=== PATIENT | female | born 1950 | race Caucasian/White ===

== ENCOUNTER 2020-11-06 12:09 | Emergency (ER) | payer OTHER ==
[~2020-11-06] VITALS: Ht 165.1 cm; Wt 86.2 kg
--- NOTE | ~2020-11-06 | EMS ---
[address] [address] EMS Patient Care Report Name: ALEXA PERALTA Room #: DEP LEYLA Chaney#: [id number] Admission: 11/06/20 Attend Phys: Discharge: 11/06/20 Date of : 50 Report #: [id number] THIS REPORT FOR: //name// Report Transmitted: 11/07/2020 06:59 EMS Care Summary [place], [place]/[facility] Incident [id number] @ 11/06/2020 11:13 Incident Location [address] [place] [address] Patient ALEXA PERALTA Female, 70 Years 1950 Patient Address [address] [place] [address] Patient History Hypertension (HTN),Hyperlipidemia, Patient Allergies No known allergies, Patient Medications Fish Oil, Vitamin D, Chief Complaint Dizzy, weak, N/V Disposition Transported No Lights/[place] Dispatch Reason Chest Pain (Non-Traumatic) Transported To [facility] Narrative weak dizzy naus[place] september [address] [address] EMS Patient Care Report Name: ALEXA PERALTA Room #: DEP Ritu#: [id number] Admission: 11/06/20 Attend Phys: Discharge: 11/06/20 Date of : 50 Report #: [id number] Initial Vitals @11:26P: 87,R: 16,Pain: 0/10,GCS: 15,CO: 1,SpO2: 97,KS Suspected: false @11:22P: 97,R: 16,BP: 152/83,Pain: 0/10,GCS: 15,SpO2: 96,Revised Trauma: 12, @11:26P: 86,R: 16,BP: 132/86,Pain: 2/10,GCS: 15,Glucose: 151,SpO2: 96,Revised Trauma: 12, @11:40P: 90,R: 16,BP: 133/84,Pain: 0/10,GCS: 15,SpO2: 96,Revised Trauma: 12,KS Suspected: false Assessments @11:40MENTAL:Place Oriented,Person Oriented,Time Oriented,Event Oriented,SKIN:Diaphoresis,Pale,HEENT:Head/Face: No Abnormalities,Neck/Airway: No Abnormalities,LUNG SOUNDS:General: Vomiting,General: Nausea,ABDOMEN:General: Vomiting,General: Nausea,PELVIS//GI:No Abnormalities,EXTREMITIES:Left Arm: No Abnormalities,Right Arm: No Abnormalities,Left Leg: No Abnormalities,Right Leg: No Abnormalities,PULSE:NEURO:No Abnormalities, Impression Generalized Weakness Procedures @11:40Saline Lock 8cc (18 ga) Site: Antecubital-LeftResponse: UnchangedSucceeded@11:40Zofran - 4 Milligrams (mg) - Intravenous (IV)Response: Unchanged@11:2612-Lead ECGResponse: UnchangedSucceeded@11:54StretcherResponse: Unchanged@11:543-Lead ECGResponse: UnchangedSucceeded Timeline 11:11,Call Received 11:11,Dispatch Notified 11:13,Dispatched 11:14,En Route 11:20,On Scene 11:21,At Patient 11:22,BP: 152/83 M,PULSE: 97,RR: 16 R,SPO2: 96 Ox,ETCO2: ,BG: ,PAIN: 0,GCS: 15, 11:26,12-Lead ECG,Response: UnchangedSucceeded, 11:26,BP: / M,PULSE: 87,RR: 16 R,SPO2: 97 Ox,ETCO2: ,BG: ,PAIN: 0,GCS: 15, 11:26,BP: 132/86 M,PULSE: 86,RR: 16 R,SPO2: 96 Ox,ETCO2: ,B,PAIN: 2,GCS: 15, 11:40,Saline Lock 8cc 18 ga Site: Antecubital-Left,Response: UnchangedSucceeded, 11:40,Zofran - 4 Milligrams (mg) - Intravenous (IV),Response: Unchanged 11:40,BP: 133/84 M,PULSE: 90,RR: 16 R,SPO2: 96 Ox,ETCO2: ,BG: ,PAIN: 0,GCS: 15, 11:44,Depart Scene 11:54,Stretcher,Response: Unchanged 11:54,3-Lead ECG,Response: UnchangedSucceeded, 12:04,At Destination 12:21,Call Closed [address] [address] EMS Patient Care Report Name: ALEXA PERALTA Room #: PRAKASH Chaney#: [id number] Admission: 11/06/20 Attend Phys: Discharge: 11/06/20 Date of : 50 Report #: [id number] Disclaimer v1.1 Copyright 202 [employer] This EMS Care Summary contains data elements from the applicable legal record (which may be displayed differently). It is designed to provide pertinent information for the following purposes: continuity of care, clinical quality, and state data reporting. The complete legal record is available to ED staff and administrators of the receiving hospital in [facility]'s Patient Tracker. All data is provided "as is."
[~2020-11-06 12:09] MED LIST: ADULT LOW DOSE81 MG PO; INDOMETHACIN 2525 MG PO; LISINOPRIL20 MG PO; NORCO 5-325 TA1 EACH PO; ZESTRIL; ZOCOR; ZOCOR20 MG PO
[2020-11-06 12:30] LABS: ABSOLUTE NEUTROPHILS 6.2 thou/uL (1.4-8.2); BASOPHILS 1.1 % (0.0-2.0); EOSINOPHILS 2.9 % (0.0-3.0); HEMATOCRIT 44.9 % (37.0-47.0); HEMOGLOBIN 14.8 gm/dL (12.0-15.0); LYMPHOCYTES 29.4 % (24.0-44.0); MCH 30.2 pg (26.0-34.0); MCHC 32.9 g/dL (28.0-37.0); MCV 91.7 fL (80.0-100.0); MONOCYTES 8.6 % (1.0-8.0); RDW 13.5 % (10.5-14.5); WBC 10.8 thou/uL (4.0-11.0)
[2020-11-06 13:01] LABS: ALBUMIN 3.7 g/dL (3.4-5.0); ANION GAP 12 mmol/L (7-16); BUN 24 mg/dL (7-18); CALCIUM 9.5 mg/dL (8.5-10.1); CHLORIDE 106 mmol/L (98-107); CO2 23 mmol/L (21-32); CREATININE 1.1 mg/dL (0.6-1.0); GLUCOSE 168 mg/dL (74-106); MAGNESIUM 1.9 mg/dL (1.8-2.4); POTASSIUM 4.5 mmol/L (3.5-5.1); SGOT 26 U/L (15-37); SGPT 34 U/L (14-59); SODIUM 141 mmol/L (136-145); TOTAL BILIRUBIN 0.7 mg/dL (0.2-1.0); TOTAL PROTEIN 7.2 g/dL (6.4-8.2); TROPONIN-I <0.06 ng/mL (<0.06)
[2020-11-06 14:01] LABS: PLATELET COUNT 337 thou/uL (150-400)
[2020-11-06 15:21] LABS: URINE BILIRUBIN NEGATIVE (Negative); URINE BLOOD NEGATIVE (Negative); URINE CLARITY CLEAR; URINE COLOR YELLOW; URINE GLUCOSE-RANDOM* NEGATIVE (Negative); URINE KETONES 3+ (Negative); URINE LEUKOCYTES-REFLEX NEGATIVE (Negative); URINE NITRITE-REFLEX NEGATIVE (Negative); URINE PROTEIN (DIPSTICK) NEGATIVE (Negative); URINE UROBILINOGEN 0.2 E.U./dl (0.2-1.0)
[2020-11-06 15:22] VITALS: BP 149/82
[2020-11-06 15:32] LABS: URINE REDUCING SUBSTANCE NEGATIVE
[2020-11-06] MEDS ORDERED: MECLIZINE HCL25 M1 PO (18:40)
--- NOTE | 2020-11-07 09:30 | EKG ---
[place] [address] [facility] [address] ELECTROCARDIOGRAM REPORT Name: ALEXA PERALTA Room #: DEP LEYLA Chaney#: [id number] Admission: 11/06/20 Attend Phys: Discharge: 11/06/20 Date of : 50 Report #: [id number] [facility] ED Test Date: 2020-11-06 Test Time: 12:11:36 Pat Name: ALEXA PERALTA Department: Room: Gender: F Schedule Maker: : 1950 Requested By: Karly Jimenez Order Number: [id number] MD: Tony Goetz Measurements Intervals [place] Rate: 85 P: 70 WA: 153 QRS: 47 QRSD: 98 T: 26 QT: 417 QTc: 496 Interpretive Statements Sinus rhythm Borderline prolonged QT interval Compared to ECG 01/08/2016 11:31:06 QT interval has lengthened Electronically Signed On 11-07-2020 9:30:43 CDT by Tony Goetz [email or web address] <ELECTRONICALLY SIGNED> By: Tony Goetz MD, [facility] 11/07/20 0930 1211 1211 Tony Goetz MD, FACC /EPI
== END 2020-11-06 18:58 | disposition home or self-care (01) ==
LOC: ER 12:09
PROVIDERS: Nurse Practitioner Family
DX: R42 Dizziness and giddiness (principal); Z20.822 Contact with and (suspected) exposure to COVID-19; R55 Syncope and collapse; E86.0 Dehydration; I10 Essential (primary) hypertension; E78.00 Pure hypercholesterolemia, unspecified; Z98.890 Other specified postprocedural states; Z79.82 Long term (current) use of aspirin; Z79.899 Other long term (current) drug therapy